=== PATIENT | male | born 1930 | race Hispanic/Latino ===

== ENCOUNTER 2016-12-31 08:55 | Outpatient (CLI) | payer MEDICARE, BC ==
--- NOTE | 2016-12-31 14:26 | RAD ---
MODIFIED BARIUM SWALLOW: INDICATION: Dysphagia, unspecified, R13.10 and R93.3. FLUOROSCOPIC TIME: 1.9 minutes, total exposure 3.2 uGy. FINDINGS: The examination was performed in conjunction with the speech therapy department. The patient had multiple episodes of tracheal penetration with thin barium liquids, barium-impregnat ed honey, barium-impregnated nectar, and barium-impregnated puree. The patient had prominent poolin g within the vallecula and piriform sinuses that would induce penetration with clearing. The patien t did have 1 episode of tracheal aspiration with thin barium liquids. IMPRESSION: Episodes of tracheal aspiration and penetration as above. Please see the speech therapy department for full details concerning the exam. POS: SERGIO
== END 2016-12-31 08:56 | disposition home or self-care (01) ==
LOC: RAD 08:55
PROVIDERS: ATTEND Internal Medicine Gastroenterology
DX: K59.00 Constipation, unspecified (principal); R14.2 Eructation; Z86.010 Personal history of colon polyps
CPT/HCPCS: 74230; G8996-GN-CL; G8997-GN-CJ

== ENCOUNTER 2017-03-18 10:47 | Outpatient (CLI) | payer MEDICARE, BC ==
--- NOTE | 2017-03-19 13:51 | RAD ---
MODIFIED BARIUM SWALLOW WITH SPEECH THERAPIST: Date: 03-18-17 History: 86-year-old male with dysphagia, oropharyngeal phase - R13.12. Feeding difficulties - R63.3, with his tory of aspiration. Gastroesophageal reflux disease. FINDINGS: Puree: moderate residue in vallecula, with incomplete clearing upon repeat swallows. Good laryngeal e levation, epiglottic inversion, and hyoid protraction. Honey thick: Similar findings, but with greater residue in pyriform sinuses, in addition to residue a t vallecula. Butler: Flash penetration visualized, without aspiration. Thin liquids: Flash penetration visualized. Flash penetration again visualized during chin tuck with thin liquids, on multiple episodes of swallowing. Difficulty in oral phase in swallowing pill. IMPRESSION: Multiple episodes of penetration. POS: SERGIO
== END 2017-03-18 10:48 | disposition home or self-care (01) ==
PROVIDERS: ATTEND Internal Medicine Gastroenterology
DX: R13.12 Dysphagia, oropharyngeal phase (principal); R63.3 Feeding difficulties
CPT/HCPCS: 74230; G8996-GN-CK; G8997-GN-CK; G8998-GN-CK